=== PATIENT | male | born 1965 | race Caucasian/White ===

== ENCOUNTER 2017-03-30 18:18 | Inpatient (IN) | payer MEDICAID, MEDICARE, OTHER ==
--- NOTE | 2017-03-30 18:38 | EDM.PDOC ---
ED HPI GENERAL MEDICAL PROBLEM - General Chief Complaint: Cardiovascular Problem Stated Complaint: BREATHING PROBLEMS,ABD PAINS, [id number] Time Seen by Provider: 03/30/17 18:35 Source of Information: Reports: Patient, RN, RN Notes Reviewed History Limitations: Reports: No Limitations - History of Present Illness INITIAL COMMENTS - FREE TEXT/NARRATIVE: Patient presents to ER with complaint of stomach pain, shortness of breath and chest pain. He states he has not seen a doctor in 20 year and is on no medications. Patient denies nausea, vomiting, diarrhea, fever and chills. States he has not drank for 2 weeks. Onset: Today Location: Reports: Chest Quality: Reports: Ache Severity: Moderate Improves with: Reports: None Worsens with: Reports: None Associated Symptoms: Reports: No Other Symptoms Epigastric Pain Score (Numeric/FACES): 8 - Related Data Allergies Allergy/AdvReac Type Severity Reaction Status Date / Time No Known Allergies Allergy Verified 03/30/17 18:23 Home Meds: Home Meds . [No Known Home Meds] 03/30/17 [History] Social & Family History - Family History Family Medical History: Noncontributory ED ROS GENERAL - Review of Systems Review Of Systems: ROS reveals no pertinent complaints other than HPI. ED EXAM, GENERAL - Physical Exam Exam: See Below Exam Limited By: No Limitations General Appearance: Alert, WD/WN, No Apparent Distress Eye Exam: Bilateral Eye: Normal Inspection Ears: Normal External Exam, Normal Canal, Hearing Grossly Normal, Normal TMs Nose: Normal Inspection, Normal Mucosa, No Blood Throat/Mouth: Normal Inspection, Normal Lips, Normal Teeth, Normal Gums, Normal Oropharynx, Normal Voice, No Airway Compromise Head: Atraumatic, Normocephalic Neck: Normal Inspection, Supple, Non-Tender, Full Range of Motion Respiratory/Chest: Other (lung sounds diminished.) Cardiovascular: Other (heart rate rapid irregular) GI/Abdominal: Other (tender epigastric) (Male) Exam: Deferred Rectal (Males) Exam: Deferred Back Exam: Normal Inspection, Full Range of Motion, NT Extremities: Normal Inspection, Normal Range of Motion, Non-Tender, Normal Capillary Refill, No Pedal Edema Neurological: Alert, Oriented, CN II-XII Intact, Normal Cognition, Normal Gait, Normal Reflexes, No Motor/Sensory Deficits Psychiatric: Normal Affect, Normal Mood Skin Exam: Warm, Dry, Intact, Normal Color, No Rash Lymphatic: No Adenopathy EKG INTERPRETATION EKG Date: 03/30/17 Time: 18:26 Rhythm: A-Fib Rate (Beats/Min): 162 EKG Interpretation Comments: Atrial fibrillation, V-rate 111-205. Left anterior fascicular block. Probable left ventricular hypertrophy. Anterior ST elevation, probably due to LVH. Borderline prolonged QT interval. Course - Vital Signs Last Recorded V/S: Last Vital Signs Temp 98.9 F 03/30/17 19:32 Pulse 114 H 03/30/17 19:32 Resp 30 H 03/30/17 19:32 BP 200/151 H 03/30/17 19:32 Pulse Ox 100 03/30/17 19:32 - Orders/Labs/Meds Orders: Active Orders 24 hr Category Date Time Status EKG Documentation Completion [RC] STAT Care 03/30/17 19:04 Active Peripheral IV Care [RC] . DIRECTED Care 03/30/17 19:07 Active Chest 1V Frontal [CR] Stat Exams 03/30/17 19:06 Ordered UA W/MICROSCOPIC [URIN] Stat Lab 03/30/17 19:04 Ordered Sodium Chloride 0.9% [Saline Flush] Med 03/30/17 19:04 Active 10 ml FLUSH ASDIRECTED PRN Peripheral IV Insertion Adult [OM.PC] Stat Oth 03/30/17 19:04 Ordered Medication Orders Sodium Chloride (Saline Flush) 10 ml FLUSH ASDIRECTED PRN PRN Reason: Keep Vein Open Labs: Laboratory Tests 03/30/17 03/30/17 03/30/17 Range/Units 18:37 18:37 19:34 WBC 8.2 (5.0-10.0) 10^3/uL RBC 4.95 (4.6-6.2) 10^6/uL Hgb 14.6 (14.0-18.0) g/dL Hct 44.0 (40.0-54.0) % MCV 88.9 (80-100) fL MCH 29.5 (27.0-34.0) pg MCHC 33.2 (33.0-35.0) g/dL Plt Count 254 (150-450) 10^3/uL Neut % (Auto) 60.3 (42.2-75.2) % Lymph % (Auto) 26.1 (20.5-50.1) % [place] % (Auto) 11.7 H (2-8) % Eos % (Auto) 1.7 (1.0-3.0) % Baso % (Auto) 0.2 (0.0-1.0) % Sodium 136 (135-145) mmol/L Potassium 3.8 (3.6-5.0) mmol/L Chloride 100 L (101-111) mmol/L Carbon Dioxide 24.0 (21.0-31.0) mmol/L Anion Gap 15.8 BUN 15 (7-18) mg/dL Creatinine 0.9 (0.6-1.3) mg/dL Est Cr Clr Drug Dosing 108.51 mL/min Estimated GFR (MDRD) > 60 BUN/Creatinine Ratio 16.66 Glucose 127 H (74-105) mg/dL Calcium 9.5 (8.4-10.2) mg/dl Magnesium 1.9 (1.8-2.5) mg/dL Total Bilirubin 1.4 H (0.2-1.0) mg/dL AST 37 (10-42) IU/L ALT 43 (10-60) IU/L Alkaline Phosphatase 37 L (42-121) IU/L Troponin I 0.08 H* (0.00-0.02) ng/ml Total Protein 7.8 (6.7-8.2) g/dl Albumin 4.5 (3.2-5.5) g/dl Globulin 3.3 Albumin/Globulin Ratio 1.36 Urine Opiates Screen Negative (NEGATIVE) Ur Oxycodone Screen Negative (NEGATIVE) Urine Methadone Screen Negative (NEGATIVE) Ur Barbiturates Screen Negative (NEGATIVE) U Tricyclic Antidepress Negative (NEGATIVE) Ur Phencyclidine Scrn Negative (NEGATIVE) Ur Amphetamine Screen Negative (NEGATIVE) U Methamphetamines Scrn Negative (NEGATIVE) Urine MDMA Screen Negative (NEGATIVE) U Benzodiazepines Scrn Negative (NEGATIVE) Urine Cocaine Screen Negative (NEGATIVE) U Marijuana (THC) Screen Negative (NEGATIVE) Ethyl Alcohol < 5 mg/dL Meds: Medications Generic Name Dose Route Start Last Admin Trade Name Freq PRN Reason Stop Dose Admin Sodium Chloride 10 ml 03/30/17 19:04 Saline Flush FLUSH ASDIRECTED PRN Keep Vein Open Discontinued Medications Generic Name Dose Route Start Last Admin Trade Name Freq PRN Reason Stop Dose Admin Aspirin 324 mg 03/30/17 19:41 Aspirin PO 03/30/17 19:42 ONETIME ONE Diltiazem HCl 25 mg 03/30/17 18:41 03/30/17 18:46 Diltiazem IVPUSH 03/30/17 18:42 25 mg ONETIME ONE Administration Metoprolol Tartrate 50 mg 03/30/17 19:51 Lopressor PO 03/30/17 19:52 ONETIME ONE - Radiology Interpretation Free Text/Narrative:: Chest xray: cardiomegaly with suspect left atrial dilation. Moderate vascular congestion See rad report Departure - Departure Time of Disposition: 19:54 Disposition: Admitted As Inpatient 65 Condition: Fair Clinical Impression: Atrial fibrillation with RVR, SOB (shortness of breath) Chest pain Qualifiers: Chest pain type: unspecified Qualified Code(s): R07.9 - Chest pain, unspecified Forms: ED Department Discharge - My Orders Last 24 Hours: My Active Orders 03/30/17 19:04 EKG Documentation Completion [RC] STAT UA W/MICROSCOPIC [URIN] Stat Sodium Chloride 0.9% [Saline Flush] 10 ml FLUSH ASDIRECTED PRN Peripheral IV Insertion Adult [OM.PC] Stat 03/30/17 19:06 Chest 1V Frontal [CR] Stat 03/30/17 19:07 Peripheral IV Care [RC] . DIRECTED - Assessment/Plan Last 24 Hours: My Active Orders 03/30/17 19:04 EKG Documentation Completion [RC] STAT UA W/MICROSCOPIC [URIN] Stat Sodium Chloride 0.9% [Saline Flush] 10 ml FLUSH ASDIRECTED PRN Peripheral IV Insertion Adult [OM.PC] Stat 03/30/17 19:06 Chest 1V Frontal [CR] Stat 03/30/17 19:07 Peripheral IV Care [RC] . DIRECTED
[2017-03-30] MEDS ORDERED: Diltiazem 25 MG/5 ML SDV IVPUSH ONE (18:41)
[2017-03-30] MEDS ORDERED: Sodium Chloride 0.9% 10 ML Syringe FLUSH PRN ×2 (19:04→21:49)
[2017-03-30 19:24] LABS: ANION GAP 15.8; CHLORIDE,CL 100 mmol/L (101-111); SODIUM,NA 136 mmol/L (135-145)
[2017-03-30] MEDS ORDERED: Aspirin 81 MG Tab.Chew PO ONE (19:41)
[2017-03-30] MEDS ORDERED: Metoprolol Tartrate 50 MG Tab PO ONE ×2 (19:51→23:36)
[2017-03-30] MEDS ORDERED: Metoprolol Tartrate 5 MG/5 ML SDV IVPUSH ONE (20:11)
[2017-03-30] MEDS ORDERED: Zolpidem 5 MG Tab PO PRN (21:49)
[2017-03-30] MEDS ORDERED: Acetaminophen 325 MG Tab PO PRN (21:49)
--- NOTE | 2017-03-30 22:01 | PCM.HP ---
H&P History of Present Illness - General Date of Service: 03/30/17 Admit Problem/Dx: Admission Diagnosis/Problem Admission Diagnosis/Problem CHF, Congestive heart failure Source of Information: Patient - History of Present Illness Initial Comments - Free Text/Narative: The patient is a 51-year-old gentleman who has not been receiving medical care for at least a 30 years. He doesn't know about any chronic medical problems he never had surgery, he is not taking medications, no allergy. 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 He noticed that he has been having epigastric pain for about 3 days prior to admission. He also noticed that he is short of breath with activity. He did not notice it appears that he does have a lot of lower extremity edema. Denies chest pain, no black or bloody stool, no nausea or vomiting. Epigastric Pain Score (Numeric/FACES): 8 - Related Data Allergies/Adverse Reactions: Allergies Allergy/AdvReac Type Severity Reaction Status Date / Time No Known Allergies Allergy Verified 03/30/17 18:23 Home Medications: Home Meds . [No Known Home Meds] 03/30/17 [History] Past Medical History - Infectious Disease History Infectious Disease History: Reports: Chicken Pox, Measles, Mumps Social & Family History - Family History Family Medical History: Noncontributory - Tobacco Use Smoking Status *Q: Never Smoker - Caffeine Use Caffeine Use: Reports: None - Alcohol Use Days Per Week of Alcohol Use: 1 Number of Drinks Per Day: 0 Total Drinks Per Week: 0 - Recreational Drug Use Recreational Drug Use: No H&P Review of Systems - Review of Systems: Review Of Systems: See Below General: Denies: Fever, Chills Pulmonary: Reports: Shortness of Breath. Denies: Wheezing, Cough, Sputum, Hemoptysis Cardiovascular: Denies: Chest Pain Gastrointestinal: Reports: Abdominal Pain (Epigastric). Denies: Black Stool, Constipation, Diarrhea Genitourinary: Denies: Dysuria Psychiatric: Denies: Confusion Exam - Exam Exam: See Below - Vital Signs Vital Signs: Last Vital Signs Temp 37.2 C 03/30/17 19:32 Pulse 134 H 03/30/17 20:16 Resp 30 H 03/30/17 19:32 BP 205/149 H 03/30/17 20:16 Pulse Ox 100 03/30/17 19:32 Weight: 97.069 kg - Exam General: Alert, Oriented Neck: Supple Lungs: Normal Respiratory Effort, Rhonchi (Basilar) Cardiovascular: Irregular Rhythm GI/Abdominal Exam: Normal Bowel Sounds, Soft, Non-Tender Extremities: Pedal Edema (Bilateral 1+) Skin: Warm, Dry Neuro Extensive - Mental Status: Alert, Oriented x3, Normal Mood/Affect - Patient Data Result Diagrams: 03/30/17 18:37 03/30/17 18:37 EKG INTERPRETATION Rhythm: A-Fib *Q Meaningful Use (ADM) - VTE *Q VTE Criteria *Q: - Stroke *Q Stroke Criteria *Q: - AMI *Q AMI Criteria *Q: - Problem List (1) Acute CHF SNOMED Code(s): 55070487 ICD Code: I50.9 - HEART FAILURE, UNSPECIFIED Status: Acute Current Visit : Yes (2) Atrial fibrillation with RVR SNOMED Code(s): 871024257690239 ICD Code: I48.91 - UNSPECIFIED ATRIAL FIBRILLATION Status: Acute Current Visit: Yes (3) Chest pain SNOMED Code(s): 40623683 ICD Code: R07.9 - CHEST PAIN, UNSPECIFIED Status: Acute Current Visit: Yes Qualifiers: Chest pain type: unspecified Qualified Code(s): R07.9 - Chest pain, unspecified (4) SOB (shortness of breath) SNOMED Code(s): 581644605 ICD Code: R06.02 - SHORTNESS OF BREATH Status: Acute Current Visit: Yes Problem List Initiated/Reviewed/Updated: Yes Orders Last 24hrs: Active Orders 24 hr Category Date Time Status TSH ULTRASENSITIVE [CHEM] AM Lab 03/31/17 05:11 Ordered Medication Orders Acetaminophen (Tylenol) 650 mg PO Q4H PRN PRN Reason: Pain (Mild 1-3)/fever Aspirin (Aspirin) 325 mg PO WITHBREAKFAST DEBRA Furosemide (Lasix) 20 mg PO BIDDIURETIC DEBRA Heparin Sodium (Porcine) (Heparin Sodium) 5,000 units SUBCUT Q8HR DEBRA Metoprolol Tartrate (Lopressor) 50 mg PO BID DEBRA Potassium Chloride (Klor-Con 10) 20 meq PO WITHBREAKFAST DEBRA Sodium Chloride (Saline Flush) 10 ml FLUSH ASDIRECTED PRN PRN Reason: Keep Vein Open Sodium Chloride (Saline Flush) 10 ml FLUSH ASDIRECTED PRN PRN Reason: Keep Vein Open Zolpidem Tartrate (Ambien) 5 mg PO BEDTIME PRN PRN Reason: Sleep Assessment/Plan Comment:: The patient is a 51-year-old gentleman with no past medical history, no medications. Presented with shortness of breath, epigastric pain. Noted to have rapid atrial fibrillation in the emergency room #1 rapid atrial fibrillation The patient received IV Cardizem but the heart rate rate still remained elevated. Give IV metoprolol and oral metoprolol. With that the patient's heart rate came down below 100. I will continue the patient on oral metoprolol. Monitor on telemetry Start on aspirin At this point I will not start on anticoagulation yet will need further workup. #2 acute congestive heart failure Based on lower extremity edema, abnormal chest x-ray Will need echocardiogram for further characterization Start the patient on Lasix and potassium supplement #3 hyperglycemia noted We will recheck #4 hypertension noted Start Lasix and metoprolol Monitor and adjust as needed #5 epigastric pain This might be ischemia or A. fib related Possible gastric ulcer Start on Protonix #6 mildly elevated troponin Concerning with epigastric pain, tachycardia Repeat troponin Start aspirin, metoprolol For now hold anticoagulation #7 DVT prophylaxis will be with subcutaneous heparin
--- NOTE | 2017-03-30 22:07 | PCM.HP ---
H&P History of Present Illness - General Date of Service: 03/30/17 Admit Problem/Dx: Admission Diagnosis/Problem Admission Diagnosis/Problem CHF, Congestive heart failure - History of Present Illness Initial Comments - Free Text/Narative: The patient is a 51-year-old gentleman with no past medical history, no medications. Presented with shortness of breath, epigastric pain. Noted to have rapid atrial fibrillation in the emergency room Epigastric Pain Score (Numeric/FACES): 8 - Related Data Allergies/Adverse Reactions: Allergies Allergy/AdvReac Type Severity Reaction Status Date / Time No Known Allergies Allergy Verified 03/30/17 18:23 Home Medications: Home Meds . [No Known Home Meds] 03/30/17 [History] Past Medical History - Infectious Disease History Infectious Disease History: Reports: Chicken Pox, Measles, Mumps Social & Family History - Family History Family Medical History: Noncontributory - Tobacco Use Smoking Status *Q: Never Smoker - Caffeine Use Caffeine Use: Reports: None - Alcohol Use Days Per Week of Alcohol Use: 1 Number of Drinks Per Day: 0 Total Drinks Per Week: 0 - Recreational Drug Use Recreational Drug Use: No H&P Review of Systems - Review of Systems: Review Of Systems: See Below General: Denies: Fever Pulmonary: Reports: Shortness of Breath Cardiovascular: Reports: Edema. Denies: Chest Pain Psychiatric: Denies: Confusion Exam - Vital Signs Vital Signs: Last Vital Signs Temp 37.2 C 03/30/17 19:32 Pulse 134 H 03/30/17 20:16 Resp 30 H 03/30/17 19:32 BP 205/149 H 03/30/17 20:16 Pulse Ox 100 03/30/17 19:32 Weight: 97.069 kg - Patient Data Result Diagrams: 03/30/17 18:37 03/30/17 18:37 *Q Meaningful Use (ADM) - VTE *Q VTE Criteria *Q: - Stroke *Q Stroke Criteria *Q: - AMI *Q AMI Criteria *Q: - Problem List (1) Acute CHF SNOMED Code(s): 59152442 ICD Code: I50.9 - HEART FAILURE, UNSPECIFIED Status: Acute Current Visit : Yes (2) Atrial fibrillation with RVR SNOMED Code(s): 680580900239331 ICD Code: I48.91 - UNSPECIFIED ATRIAL FIBRILLATION Status: Acute Current Visit: Yes (3) Chest pain SNOMED Code(s): 31925371 ICD Code: R07.9 - CHEST PAIN, UNSPECIFIED Status: Acute Current Visit: Yes Qualifiers: Chest pain type: unspecified Qualified Code(s): R07.9 - Chest pain, unspecified (4) SOB (shortness of breath) SNOMED Code(s): 295571413 ICD Code: R06.02 - SHORTNESS OF BREATH Status: Acute Current Visit: Yes Problem List Initiated/Reviewed/Updated: Yes Orders Last 24hrs: Active Orders 24 hr Category Date Time Status TSH ULTRASENSITIVE [CHEM] AM Lab 03/31/17 05:11 Ordered Pantoprazole [ProTONIX] Med 03/31/17 06:00 Ordered 40 mg PO BIDAC Medication Orders Acetaminophen (Tylenol) 650 mg PO Q4H PRN PRN Reason: Pain (Mild 1-3)/fever Aspirin (Aspirin) 325 mg PO WITHBREAKFAST DEBRA Furosemide (Lasix) 20 mg PO BIDDIURETIC DEBRA Heparin Sodium (Porcine) (Heparin Sodium) 5,000 units SUBCUT Q8HR DEBRA Metoprolol Tartrate (Lopressor) 50 mg PO BID DEBRA Pantoprazole Sodium (Protonix) 40 mg PO BIDAC DEBRA Potassium Chloride (Klor-Con 10) 20 meq PO WITHBREAKFAST DEBRA Sodium Chloride (Saline Flush) 10 ml FLUSH ASDIRECTED PRN PRN Reason: Keep Vein Open Sodium Chloride (Saline Flush) 10 ml FLUSH ASDIRECTED PRN PRN Reason: Keep Vein Open Zolpidem Tartrate (Ambien) 5 mg PO BEDTIME PRN PRN Reason: Sleep Assessment/Plan Comment:: The patient is a 51-year-old gentleman with no past medical history, no medications. Presented with shortness of breath, epigastric pain. Noted to have rapid atrial fibrillation in the emergency room #1 rapid atrial fibrillation The patient received IV Cardizem but the heart rate rate still remained elevated. Give IV metoprolol and oral metoprolol. With that the patient's heart rate came down below 100. I will continue the patient on oral metoprolol. Monitor on telemetry Start on aspirin At this point I will not start on anticoagulation yet will need further workup. #2 acute congestive heart failure Based on lower extremity edema, abnormal chest x-ray Will need echocardiogram for further characterization Start the patient on Lasix and potassium supplement #3 hyperglycemia noted We will recheck #4 hypertension noted Start Lasix and metoprolol Monitor and adjust as needed #5 epigastric pain This might be ischemia or A. fib related Possible gastric ulcer Start on Protonix #6 mildly elevated troponin Concerning with epigastric pain, tachycardia Repeat troponin Start aspirin, metoprolol For now hold anticoagulation #7 DVT prophylaxis will be with subcutaneous heparin
[2017-03-30] MEDS: Furosemide 20 MG Tab PO SCH (22:39)
[2017-03-30] MEDS: Heparin Sodium 5,000 Units/ML Vial SUBCUT SCH (22:39)
[2017-03-31] MEDS ORDERED: amLODIPine 5 MG Tab PO ONE (03:51)
[2017-03-31] MEDS: Heparin Sodium 5,000 Units/ML Vial SUBCUT SCH ×3 (06:18→21:54)
[2017-03-31] MEDS: Pantoprazole 40 MG Tab.CR PO SCH ×2 (06:18→17:35)
[2017-03-31 07:05] LABS: ANION GAP 13.9; CHLORIDE,CL 106 mmol/L (101-111); SODIUM,NA 138 mmol/L (135-145)
[2017-03-31] MEDS: Potassium Chloride 10 MEQ Tab.ER PO SCH (08:57)
[2017-03-31] MEDS: Furosemide 20 MG Tab PO SCH ×2 (08:57→13:36)
[2017-03-31] MEDS: Aspirin 325 MG Tab PO SCH (08:57)
[2017-03-31] MEDS: Metoprolol Tartrate 50 MG Tab PO SCH ×2 (08:57→21:54)
[2017-03-31] MEDS ORDERED: Aluminum Hydroxide/Magnesium Hydroxide/Simethicone Susp 30 ML Cup PO PRN (12:08)
[2017-03-31] MEDS ORDERED: Aluminum Hydroxide/Magnesium Hydroxide/Simethicone Susp 30 ML Cup PO ONE (12:15)
--- NOTE | 2017-03-31 12:15 | PCM.PN ---
- General Info Date of Service: 03/31/17 Admission Dx/Problem (Free Text): Shortness of breath, epigastric pain Subjective Update: He feels that overnight the shortness of breath has improved. Continues to have lower extremity edema. Epigastric pain has improved but still present. No associated nausea. The pain started days prior to admission. - Review of Systems General: Denies: Fever Pulmonary: Reports: Shortness of Breath Cardiovascular: Denies: Chest Pain Gastrointestinal: Reports: Abdominal Pain (Epigastric) Neurological: Denies: Confusion - Patient Data Vitals - Most Recent: Last Vital Signs Temp 37.1 C 03/31/17 08:00 Pulse 96 03/31/17 08:57 Resp 20 03/31/17 08:00 BP 157/138 H 03/31/17 08:57 Pulse Ox 98 03/31/17 08:00 Weight - Most Recent: 97.069 kg I&O - Last 24 Hours: Intake & Output 03/30/17 03/31/17 03/31/17 22:59 06:59 14:59 Intake Total 240 Balance 240 Lab Results Last 24 Hours: Laboratory Results - last 24 hr 03/31/17 03/31/17 03/31/17 Range/Units 06:24 06:24 06:24 WBC 6.8 (5.0-10.0) 10^3/uL RBC 4.75 (4.6-6.2) 10^6/uL Hgb 14.1 (14.0-18.0) g/dL Hct 42.1 (40.0-54.0) % MCV 88.6 (80-100) fL MCH 29.7 (27.0-34.0) pg MCHC 33.5 (33.0-35.0) g/dL Plt Count 232 (150-450) 10^3/uL Neut % (Auto) 53.4 (42.2-75.2) % Lymph % (Auto) 30.4 (20.5-50.1) % [place] % (Auto) 14.0 H (2-8) % Eos % (Auto) 2.1 (1.0-3.0) % Baso % (Auto) 0.1 (0.0-1.0) % Sodium 138 (135-145) mmol/L Potassium 3.9 (3.6-5.0) mmol/L Chloride 106 (101-111) mmol/L Carbon Dioxide 22.0 (21.0-31.0) mmol/L Anion Gap 13.9 BUN 17 (7-18) mg/dL Creatinine 0.9 (0.6-1.3) mg/dL Est Cr Clr Drug Dosing 108.51 mL/min Estimated GFR (MDRD) > 60 Glucose 121 H (74-105) mg/dL Calcium 9.1 (8.4-10.2) mg/dl Troponin I 0.08 H* (0.00-0.02) ng/ml TSH, Ultra Sensitive 2.97 (0.45-5.33) uIu/mL Med Orders - Current: Current Medications Acetaminophen (Tylenol) 650 mg PO Q4H PRN PRN Reason: Pain (Mild 1-3)/fever Al Hydroxide/Mg Hydroxide (Mag-Al Plus) 30 ml PO ONETIME ONE Stop: 03/31/17 12:16 Al Hydroxide/Mg Hydroxide (Mag-Al Plus) 30 ml PO Q6H PRN PRN Reason: epigastric pain, nausea Aspirin (Aspirin) 325 mg PO WITHBREAKFAST [facility] Last Admin: 03/31/17 08:57 Dose: 325 mg Furosemide (Lasix) 20 mg PO BIDDIURETIC [facility] Last Admin: 03/31/17 08:57 Dose: 20 mg Heparin Sodium (Porcine) (Heparin Sodium) 5,000 units SUBCUT Q8HR [facility] Last Admin: 03/31/17 06:18 Dose: 5,000 units Lisinopril (Prinivil) 10 mg PO DAILY [facility] Metoprolol Tartrate (Lopressor) 50 mg PO BID [facility] Last Admin: 03/31/17 08:57 Dose: 50 mg Pantoprazole Sodium (Protonix) 40 mg PO BIDAC [facility] Last Admin: 03/31/17 06:18 Dose: 40 mg Potassium Chloride (Klor-Con 10) 20 meq PO WITHBREAKFAST [facility] Last Admin: 03/31/17 08:57 Dose: 20 meq Sodium Chloride (Saline Flush) 10 ml FLUSH ASDIRECTED PRN PRN Reason: Keep Vein Open Sodium Chloride (Saline Flush) 10 ml FLUSH ASDIRECTED PRN PRN Reason: Keep Vein Open Zolpidem Tartrate (Ambien) 5 mg PO BEDTIME PRN PRN Reason: Sleep Discontinued Medications Amlodipine Besylate (Norvasc) 5 mg PO ONETIME ONE Stop: 03/31/17 03:52 Last Admin: 03/31/17 04:02 Dose: 5 mg Aspirin (Aspirin) 324 mg PO ONETIME ONE Stop: 03/30/17 19:42 Last Admin: 03/30/17 19:53 Dose: 324 mg Diltiazem HCl (Diltiazem) 25 mg IVPUSH ONETIME ONE Stop: 03/30/17 18:42 Last Admin: 03/30/17 18:46 Dose: 25 mg Metoprolol Tartrate (Lopressor) 50 mg PO ONETIME ONE Stop: 03/30/17 19:52 Last Admin: 03/30/17 19:55 Dose: 50 mg Metoprolol Tartrate (Lopressor) 5 mg IVPUSH ONETIME ONE Stop: 03/30/17 20:12 Last Admin: 03/30/17 20:16 Dose: 5 mg Metoprolol Tartrate (Lopressor) 50 mg PO ONETIME ONE Stop: 03/30/17 23:37 Last Admin: 03/30/17 23:51 Dose: 50 mg - Exam General: Alert, Oriented Neck: Supple Lungs: Normal Respiratory Effort, [place] Cardiovascular: Irregular Rhythm GI/Abdominal Exam: Normal Bowel Sounds, Soft, Other (Mild to moderate epigastric tenderness) Extremities: Pedal Edema - Problem List & Annotations (1) Acute CHF SNOMED Code(s): 99112164 Code(s): I50.9 - HEART FAILURE, UNSPECIFIED Status: Acute Current Visit: Yes (2) Atrial fibrillation with RVR SNOMED Code(s): 631211211678711 Code(s): I48.91 - UNSPECIFIED ATRIAL FIBRILLATION Status: Acute Current Visit: Yes (3) Chest pain SNOMED Code(s): 16794880 Code(s): R07.9 - CHEST PAIN, UNSPECIFIED Status: Acute Current Visit: Yes Qualifiers: Chest pain type: unspecified Qualified Code(s): R07.9 - Chest pain, unspecified (4) SOB (shortness of breath) SNOMED Code(s): 035788124 Code(s): R06.02 - SHORTNESS OF BREATH Status: Acute Current Visit: Yes - Problem List Review Problem List Initiated/Reviewed/Updated: Yes - My Orders Last 24 Hours: My Active Orders 03/31/17 06:00 Pantoprazole [ProTONIX] 40 mg PO BIDAC 03/31/17 12:08 Alum Hydrox/Mag Hydrox/Simeth [Mag-Al Plus] 30 ml PO ONETIME ONE Alum Hydrox/Mag Hydrox/Simeth [Mag-Al Plus] 30 ml PO Q6H PRN 03/31/17 12:10 GLYCOSYLATED HEMOGLOBIN (HA1C) [REF] Routine 03/31/17 12:15 Lisinopril [Prinivil] 10 mg PO DAILY 04/01/17 05:15 BASIC METABOLIC PANEL,BMP [CHEM] AM CBC WITH AUTO DIFF [HEME] AM - Plan Plan:: The patient is a 51-year-old gentleman with no past medical history, no medications. Presented with shortness of breath, epigastric pain. Noted to have rapid atrial fibrillation in the emergency room #1 rapid atrial fibrillation The patient received IV Cardizem now controlled with PO metoprolol. Monitor on telemetry Started on aspirin At this point I will not start on anticoagulation yet - will need further workup. C+H+A-D+/-S- #2 acute congestive heart failure Based on lower extremity edema, abnormal chest x-ray Will need echocardiogram for further characterization treat the patient on Lasix and potassium supplement #3 hyperglycemia noted We will check hgbA1c #4 hypertension noted Started Lasix and metoprolol add lisinopril Monitor and adjust as needed #5 epigastric pain This might be ischemia or A. fib related Possible gastric ulcer cont on Protonix add maalox #6 mildly elevated troponin Concerning with epigastric pain, tachycardia Repeat troponin is stable Started aspirin, metoprolol For now hold full dose anticoagulation #7 DVT prophylaxis will be with subcutaneous heparin
[2017-03-31] MEDS: Lisinopril 10 MG Tab PO SCH (12:23)
[2017-04-01] MEDS: Pantoprazole 40 MG Tab.CR PO SCH (06:20)
[2017-04-01] MEDS: Heparin Sodium 5,000 Units/ML Vial SUBCUT SCH (06:20)
[2017-04-01 06:50] LABS: ANION GAP 13.6; CHLORIDE,CL 103 mmol/L (101-111); SODIUM,NA 138 mmol/L (135-145)
[2017-04-01] MEDS: Lisinopril 10 MG Tab PO SCH (08:22)
[2017-04-01] MEDS: Furosemide 20 MG Tab PO SCH (08:22)
[2017-04-01] MEDS: Potassium Chloride 10 MEQ Tab.ER PO SCH (08:22)
[2017-04-01] MEDS: Aspirin 325 MG Tab PO SCH (08:22)
[2017-04-01] MEDS ORDERED: Metoprolol Tartrate 50 MG Tab PO SCH (09:00)
--- NOTE | 2017-04-01 10:39 | PCM.DCSUM1 ---
Discharge Summary - Hospital Course Free Text/Narrative:: The patient is a 51-year-old gentleman with no past medical history, no medications. Presented with shortness of breath, epigastric pain. Noted to have rapid atrial fibrillation in the emergency room #1 rapid atrial fibrillation The patient received IV Cardizem now controlled with PO metoprolol. Started on aspirin C+(although it may relate to rapid afib)H+A-D+/-S- At this point I will not start on anticoagulation yet - will need further workup , would obtain echo, stress test #2 acute congestive heart failure Based on lower extremity edema, abnormal chest x-ray might relate to rapid afib Will need echocardiogram for further characterization treat the patient on Lasix and potassium supplement consider stopping diuretics if echo good, afib controlled #3 hyperglycemia noted in the 120s on admission and day 1 but fasting BS 88 on Day 2 We will check hgbA1c #4 hypertension noted Started Lasix and metoprolol, lisinopril Monitor and adjust as needed #5 epigastric pain This might be ischemia or A. fib related Possible gastric ulcer cont on Protonix #6 mildly elevated troponin Concerning with epigastric pain, tachycardia Repeat troponin is stable Started aspirin, metoprolol For now hold full dose anticoagulation follw up as out pt with further evals - Discharge Data Discharge Date: 04/01/17 Discharge Disposition: Home, Self-Care 01 Condition: Fair - Discharge Diagnosis/Problem(s) (1) Acute CHF SNOMED Code(s): 51542051 ICD Code: I50.9 - HEART FAILURE, UNSPECIFIED Status: Acute Current Visit : Yes (2) Atrial fibrillation with RVR SNOMED Code(s): 185097569753036 ICD Code: I48.91 - UNSPECIFIED ATRIAL FIBRILLATION Status: Acute Current Visit: Yes (3) Chest pain SNOMED Code(s): 07307187 ICD Code: R07.9 - CHEST PAIN, UNSPECIFIED Status: Acute Current Visit: Yes Qualifiers: Chest pain type: unspecified Qualified Code(s): R07.9 - Chest pain, unspecified (4) SOB (shortness of breath) SNOMED Code(s): 000914722 ICD Code: R06.02 - SHORTNESS OF BREATH Status: Acute Current Visit: Yes - Patient Instructions Diet: Heart Healthy Diet Activity: As Tolerated - Discharge Plan Prescriptions/Med Rec: Furosemide [Lasix] 20 mg PO DAILY #30 tablet Lisinopril [Prinivil] 20 mg PO DAILY #30 tablet Metoprolol Tartrate [Lopressor] 75 mg PO BID #60 tablet Pantoprazole [ProTONIX] 40 mg PO DAILY #30 tab.cr Potassium Chloride [Klor-Con 10] 20 meq PO WITHBREAKFAST #30 tab.er Home Medications: Home Meds Aspirin 325 mg PO WITHBREAKFAST tablet 04/01/17 [Rx] Furosemide [Lasix] 20 mg PO DAILY #30 tablet 04/01/17 [Rx] Lisinopril [Prinivil] 20 mg PO DAILY #30 tablet 04/01/17 [Rx] Metoprolol Tartrate [Lopressor] 75 mg PO BID #60 tablet 04/01/17 [Rx] Pantoprazole [ProTONIX] 40 mg PO DAILY #30 tab.cr 04/01/17 [Rx] Potassium Chloride [Klor-Con 10] 20 meq PO WITHBREAKFAST #30 tab.er 04/01/17 [Rx ] Patient Handouts: Furosemide tablets, Potassium Salts tablets, extended- release tablets or capsules, Metoprolol tablets, Aspirin and Your Heart, Lisinopril tablets, Pantoprazole tablets, Heart Failure, Wbby-in-Vijh, Aspirin, ASA oral tablets, Atrial Fibrillation, [id number] Referrals: PCP,None [Primary Care Provider] - (dr. Bosch) - Discharge Summary/Plan Comment DC Time >30 min.: No - General Info Date of Service: 04/01/17 - Review of Systems General: Denies: Fever, Weakness Pulmonary: Denies: Shortness of Breath Cardiovascular: Denies: Chest Pain Gastrointestinal: Denies: Abdominal Pain Psychiatric: Denies: Confusion - Patient Data Vitals - Most Recent: Last Vital Signs Temp 37.0 C 04/01/17 07:47 Pulse 80 04/01/17 08:22 Resp 20 04/01/17 07:47 BP 151/96 H 04/01/17 08:22 Pulse Ox 98 04/01/17 07:47 Weight - Most Recent: 97.069 kg I&O - Last 24 hours: Intake & Output 03/31/17 04/01/17 04/01/17 22:59 06:59 14:59 Intake Total 250 440 Balance 250 440 Lab Results - Last 24 hrs: Laboratory Results - last 24 hr 04/01/17 04/01/17 Range/Units 06:10 06:10 WBC 5.4 (5.0-10.0) 10^3/uL RBC 4.45 L (4.6-6.2) 10^6/uL Hgb 13.2 L (14.0-18.0) g/dL Hct 39.5 L (40.0-54.0) % MCV 88.8 (80-100) fL MCH 29.7 (27.0-34.0) pg MCHC 33.4 (33.0-35.0) g/dL Plt Count 194 (150-450) 10^3/uL Neut % (Auto) 43.3 (42.2-75.2) % Lymph % (Auto) 36.0 (20.5-50.1) % [place] % (Auto) 17.0 H (2-8) % Eos % (Auto) 3.3 H (1.0-3.0) % Baso % (Auto) 0.4 (0.0-1.0) % Sodium 138 (135-145) mmol/L Potassium 3.6 (3.6-5.0) mmol/L Chloride 103 (101-111) mmol/L Carbon Dioxide 25.0 (21.0-31.0) mmol/L Anion Gap 13.6 BUN 15 (7-18) mg/dL Creatinine 0.9 (0.6-1.3) mg/dL Est Cr Clr Drug Dosing 108.51 mL/min Estimated GFR (MDRD) > 60 Glucose 87 (74-105) mg/dL Calcium 8.7 (8.4-10.2) mg/dl Med Orders - Current: Current Medications Acetaminophen (Tylenol) 650 mg PO Q4H PRN PRN Reason: Pain (Mild 1-3)/fever Al Hydroxide/Mg Hydroxide (Mag-Al Plus) 30 ml PO Q6H PRN PRN Reason: epigastric pain, nausea Aspirin (Aspirin) 325 mg PO WITHBREAKFAST [facility] Last Admin: 04/01/17 08:22 Dose: 325 mg Furosemide (Lasix) 20 mg PO BIDDIURETIC [facility] Last Admin: 04/01/17 08:22 Dose: 20 mg Heparin Sodium (Porcine) (Heparin Sodium) 5,000 units SUBCUT Q8HR [facility] Last Admin: 04/01/17 06:20 Dose: 5,000 units Lisinopril (Prinivil) 10 mg PO DAILY [facility] Last Admin: 04/01/17 08:22 Dose: 10 mg Metoprolol Tartrate (Lopressor) 75 mg PO BID [facility] Last Admin: 04/01/17 08:22 Dose: 75 mg Pantoprazole Sodium (Protonix) 40 mg PO BIDAC [facility] Last Admin: 04/01/17 06:20 Dose: 40 mg Potassium Chloride (Klor-Con 10) 20 meq PO WITHBREAKFAST [facility] Last Admin: 04/01/17 08:22 Dose: 20 meq Sodium Chloride (Saline Flush) 10 ml FLUSH ASDIRECTED PRN PRN Reason: Keep Vein Open Sodium Chloride (Saline Flush) 10 ml FLUSH ASDIRECTED PRN PRN Reason: Keep Vein Open Zolpidem Tartrate (Ambien) 5 mg PO BEDTIME PRN PRN Reason: Sleep Discontinued Medications Al Hydroxide/Mg Hydroxide (Mag-Al Plus) 30 ml PO ONETIME ONE Stop: 03/31/17 12:16 Last Admin: 03/31/17 12:22 Dose: 30 ml Amlodipine Besylate (Norvasc) 5 mg PO ONETIME ONE Stop: 03/31/17 03:52 Last Admin: 03/31/17 04:02 Dose: 5 mg Aspirin (Aspirin) 324 mg PO ONETIME ONE Stop: 03/30/17 19:42 Last Admin: 03/30/17 19:53 Dose: 324 mg Diltiazem HCl (Diltiazem) 25 mg IVPUSH ONETIME ONE Stop: 03/30/17 18:42 Last Admin: 03/30/17 18:46 Dose: 25 mg Metoprolol Tartrate (Lopressor) 50 mg PO ONETIME ONE Stop: 03/30/17 19:52 Last Admin: 03/30/17 19:55 Dose: 50 mg Metoprolol Tartrate (Lopressor) 5 mg IVPUSH ONETIME ONE Stop: 03/30/17 20:12 Last Admin: 03/30/17 20:16 Dose: 5 mg Metoprolol Tartrate (Lopressor) 50 mg PO BID [facility] Last Admin: 03/31/17 21:54 Dose: 50 mg Metoprolol Tartrate (Lopressor) 50 mg PO ONETIME ONE Stop: 03/30/17 23:37 Last Admin: 03/30/17 23:51 Dose: 50 mg - Exam General: Reports: Alert, Oriented Neck: Reports: Supple Lungs: Reports: Clear to Auscultation, Normal Respiratory Effort Cardiovascular: Reports: Irregular Rhythm Extremities: No Pedal Edema *Q Meaningful Use (DIS) - VTE *Q VTE Criteria *Q: - Stroke *Q Stroke Criteria *Q: - AMI *Q AMI Criteria *Q:
--- NOTE | 2017-04-04 15:10 | EKG ---
03/30/2017 - GIL AVELAR - TIME: 1907 hours. FINDINGS: EKG, per my reading, shows atrial fibrillation with rapid ventricular rate around 110. MODL /[id number]
--- NOTE | 2017-04-04 15:25 | EKG ---
03/30/2017 - GIL AVELAR - TIME: 6:26 p.m. EKG per my reading shows rapid atrial fibrillation at the rate of 160s. MODL /[id number]
== END 2017-04-01 11:20 | disposition home or self-care (01) | DRG 293 ==
LOC: DL.ED 18:18 → DL.MS 21:44 → UNDOADMIN 21:44 → DL.MS 21:49
PROVIDERS: ADMIT Internal Medicine; ATTEND Internal Medicine
DX: I50.9 Heart failure, unspecified (principal); I48.91 Unspecified atrial fibrillation; R73.9 Hyperglycemia, unspecified; I10 Essential (primary) hypertension; R10.13 Epigastric pain; R74.8 Abnormal levels of other serum enzymes
CPT/HCPCS: 36415; 71045; 80048; 80053; 80305; 81001; 83036; 83735; 84443; 84484; 85025; 93005; 93010; 96374; 96375; 99285; A9270-GY; G0480; J1644; J3490

== ENCOUNTER 2021-10-07 09:00 | Emergency (ER) | payer SELFPAY ==
[2021-10-07] MEDS: Sodium Chloride 0.9% 10 ML Syringe FLUSH PRN ×2 (09:19→12:21)
[2021-10-07] MEDS ORDERED: Nitroglycerin 0.4 MG Tab.SL SL ONE (09:20)
[2021-10-07] MEDS ORDERED: Aspirin 81 MG Tab.Chew PO ONE (09:20)
[2021-10-07 09:41] LABS: ANION GAP 9.4 mEq/L (7-13); CHLORIDE,CL 100 mmol/L (98-107); ESTIMATED GFR 77 mL/min (>=60); SODIUM,NA 134 mmol/L (136-145)
[2021-10-07] MEDS ORDERED: Nitroglycerin/D5W 25 MG/250 ML BOTTLE IV SCH (09:45)
[2021-10-07] MEDS ORDERED: Metoprolol Tartrate 5 MG/5 ML SDV IVPUSH ONE ×2 (10:31→11:58)
[2021-10-07] MEDS ORDERED: hydrALAZINE 20 MG/ML SDV IVPUSH ONE (12:00)
[2021-10-07] MEDS ORDERED: Labetalol 20 MG/4 ML Syringe IVPUSH ONE ×2 (13:09→14:10)
[2021-10-07] MEDS ORDERED: Heparin Sodium 5,000 Units/ML Vial IVPUSH ONE (14:14)
[2021-10-07] MEDS ORDERED: Heparin Sodium/0.45% NaCl 25,000 UNITS/500 ML BAG IV SCH (14:15)
== END 2021-10-07 17:57 | disposition home or self-care (01) ==
LOC: DL.ED 09:00
DX: I21.4 Non-ST elevation (NSTEMI) myocardial infarction (principal); Z20.822 Contact with and (suspected) exposure to COVID-19; Z79.82 Long term (current) use of aspirin; Z79.899 Other long term (current) drug therapy
CPT/HCPCS: 36415; 71045; 80053; 82947; 83690; 83735; 83880; 84443; 84484; 85025; 85379; 85610; 86140; 87635; 93005; 93010; 96365; 96366; 96368; 96375; 96376; 99284; 99285; A9270; J0360; J1644; J3490; U0002

== ENCOUNTER 2022-02-11 10:39 | Inpatient (IN) | payer MEDICAID ==
[2022-02-11] MEDS ORDERED: Diltiazem 25 MG/5 ML SDV IVPUSH ONE (11:17)
[2022-02-11] MEDS ORDERED: Sodium Chloride 0.9% 10 ML Syringe FLUSH PRN (11:17)
[2022-02-11] MEDS ORDERED: Diltiazem 125 MG in Sodium Chloride 0.9% 100 ML IV SCH (11:30)
[2022-02-11 11:44] LABS: PTT,PARTIAL THROMBOPLSTIN TIME 28.3 SEC (22.0-34.0)
[2022-02-11] MEDS ORDERED: Furosemide 40 MG/4 ML VIAL IVPUSH ONE (11:56)
[2022-02-11 12:01] LABS: ANION GAP 12.3 mEq/L (7-13)
[2022-02-11 12:53] LABS: CORONAVIRUS COVID-19 NAA NEGATIVE (NEGATIVE); RESPIRATORY SYNCYTIAL VIR NAA NEGATIVE (NEGATIVE)
[2022-02-11] MEDS ORDERED: Ondansetron 4 MG/2 ML SDV IVPUSH PRN (15:32)
[2022-02-11] MEDS ORDERED: Albuterol/Ipratropium 3.0-0.5 MG/3 ML Neb Soln NEB PRN (15:32)
[2022-02-11] MEDS ORDERED: Magnesium Hydroxide 400 MG/5 ML Susp 30 ML Cup PO PRN (15:32)
[2022-02-11] MEDS ORDERED: Acetaminophen/HYDROcodone 325-10 MG Tab PO PRN (15:32)
[2022-02-11] MEDS ORDERED: Polyethylene Glycol 3350 Powder 17 GM Packet PO PRN (15:32)
[2022-02-11] MEDS ORDERED: Acetaminophen 325 MG Tab PO PRN (15:32)
[2022-02-11] MEDS ORDERED: HYDROmorphone 0.5 MG/0.5 ML Syringe IVPUSH PRN (15:32)
[2022-02-11] MEDS ORDERED: Metoprolol Tartrate 5 MG/5 ML SDV IVPUSH PRN (15:45)
[2022-02-11] MEDS: Warfarin 5 MG Tab PO SCH (16:53)
[2022-02-11] MEDS: Lisinopril 10 MG Tab PO SCH (16:53)
[2022-02-11] MEDS ORDERED: Magnesium Sulfate/Water 2 GM in Premix Bag 1 BAG IV ONE (17:00)
[2022-02-11 18:11] LABS: AMPHETAMINES,URINE NEGATIVE (NEGATIVE); BARBITURATES,URINE NEGATIVE (NEGATIVE); BENZODIAZEPINE,URINE NEGATIVE (NEGATIVE); MDMA (ECSTASY), URINE NEGATIVE (NEGATIVE); METHADONE,URINE NEGATIVE (NEGATIVE); METHAMPHETAMINES,URINE NEGATIVE (NEGATIVE); OPIATES,URINE NEGATIVE (NEGATIVE); OXYCODONE,URINE NEGATIVE (NEGATIVE); PHENCYCLIDINE,URINE NEGATIVE (NEGATIVE); TCA,URINE NEGATIVE (NEGATIVE)
[2022-02-11] MEDS: Metoprolol Tartrate 50 MG Tab PO SCH (20:27)
[2022-02-11] MEDS: Heparin Sodium/0.45% NaCl 25,000 UNITS/500 ML BAG IV SCH (21:46)
[2022-02-12 05:02] LABS: ANION GAP 8.5 mEq/L (7-13)
[2022-02-12] MEDS ORDERED: Metoprolol Tartrate 5 MG/5 ML SDV IVPUSH PRN (08:07)
[2022-02-12] MEDS ORDERED: hydrALAZINE 20 MG/ML SDV IVPUSH PRN (08:07)
[2022-02-12] MEDS: Metoprolol Tartrate 50 MG Tab PO SCH ×2 (08:08→20:38)
[2022-02-12] MEDS: Clopidogrel 75 MG Tab PO SCH (08:08)
[2022-02-12] MEDS: Furosemide 20 MG Tab PO SCH (08:09)
[2022-02-12] MEDS: Lisinopril 10 MG Tab PO SCH (08:10)
[2022-02-12] MEDS: atorvaSTATin 20 MG Tab PO SCH (08:10)
[2022-02-12] MEDS: Spironolactone 25 MG Tab PO SCH (08:10)
[2022-02-12] MEDS: Warfarin 5 MG Tab PO SCH (13:48)
[2022-02-12] MEDS ORDERED: Labetalol 20 MG/4 ML Syringe IVPUSH PRN (19:23)
[2022-02-12] MEDS: Heparin Sodium/0.45% NaCl 25,000 UNITS/500 ML BAG IV SCH (19:42)
[2022-02-12] MEDS ORDERED: Magnesium Sulfate/Water 2 GM in Premix Bag 1 BAG IV ONE (21:00)
[2022-02-13 04:56] LABS: ANION GAP 7.5 mEq/L (7-13)
[2022-02-13 05:01] LABS: PTT,PARTIAL THROMBOPLSTIN TIME 65.2 SEC (22.0-34.0)
[2022-02-13] MEDS ORDERED: Fluconazole 100 MG Tab PO ONE (07:12)
[2022-02-13] MEDS: Clopidogrel 75 MG Tab PO SCH ×2 (07:36→08:19)
[2022-02-13] MEDS: Furosemide 20 MG Tab PO SCH ×2 (07:36→08:19)
[2022-02-13] MEDS: Metoprolol Tartrate 50 MG Tab PO SCH ×2 (07:36→20:40)
[2022-02-13] MEDS: Spironolactone 25 MG Tab PO SCH ×2 (07:36→08:19)
[2022-02-13] MEDS: Lisinopril 10 MG Tab PO SCH ×2 (07:36→08:19)
[2022-02-13] MEDS: atorvaSTATin 20 MG Tab PO SCH ×2 (07:38→08:19)
[2022-02-13] MEDS ORDERED: Metoprolol Tartrate 25 MG Tab PO ONE (08:21)
[2022-02-13] MEDS ORDERED: cloNIDine 0.1 MG Tab PO ONE (08:23)
[2022-02-13] MEDS ORDERED: Metoprolol Tartrate 50 MG Tab PO SCH (09:00)
[2022-02-13] MEDS ORDERED: Warfarin 5 MG Tab PO SCH (14:00)
[2022-02-13] MEDS: Heparin Sodium/0.45% NaCl 25,000 UNITS/500 ML BAG IV SCH (18:57)
[2022-02-14 06:51] LABS: ANION GAP 8.7 mEq/L (7-13)
[2022-02-14] MEDS ORDERED: Fluconazole 100 MG Tab PO ONE (09:00)
[2022-02-14] MEDS: Spironolactone 25 MG Tab PO SCH (10:11)
[2022-02-14] MEDS: atorvaSTATin 20 MG Tab PO SCH (10:12)
[2022-02-14] MEDS: Furosemide 20 MG Tab PO SCH (10:13)
[2022-02-14] MEDS: Clopidogrel 75 MG Tab PO SCH (10:13)
[2022-02-14] MEDS: Lisinopril 10 MG Tab PO SCH (10:14)
[2022-02-14] MEDS: Metoprolol Tartrate 50 MG Tab PO SCH ×2 (10:15→21:41)
[2022-02-14] MEDS ORDERED: Warfarin 5 MG Tab PO ONE (14:00)
[2022-02-14] MEDS ORDERED: Apixaban 5 MG Tab PO ONE (21:03)
[2022-02-14] MEDS: cloNIDine 0.1 MG Tab PO SCH (21:41)
[2022-02-15] MEDS ORDERED: Apixaban 5 MG Tab PO SCH (09:00)
[2022-02-15] MEDS: Lisinopril 10 MG Tab PO SCH (09:03)
[2022-02-15] MEDS: Metoprolol Tartrate 50 MG Tab PO SCH (09:04)
[2022-02-15] MEDS: cloNIDine 0.1 MG Tab PO SCH (09:05)
[2022-02-15] MEDS: Furosemide 20 MG Tab PO SCH (09:06)
[2022-02-15] MEDS: atorvaSTATin 20 MG Tab PO SCH (09:06)
[2022-02-15] MEDS: Clopidogrel 75 MG Tab PO SCH (09:06)
[2022-02-15] MEDS: Spironolactone 25 MG Tab PO SCH (09:07)
== END 2022-02-15 10:10 | disposition home or self-care (01) | DRG 291 ==
LOC: DL.ED 10:39 → DL.MS 14:34
PROVIDERS: ADMIT Internal Medicine; ATTEND Internal Medicine
DX: I13.0 Hypertensive heart and chronic kidney disease with heart failure and stage 1 through stage 4 chronic kidney disease, or unspecified chronic kidney disease (principal); I50.23 Acute on chronic systolic (congestive) heart failure; I48.20 Chronic atrial fibrillation, unspecified; I42.8 Other cardiomyopathies; N18.2 Chronic kidney disease, stage 2 (mild); E83.9 Disorder of mineral metabolism, unspecified; K76.0 Fatty (change of) liver, not elsewhere classified; E83.42 Hypomagnesemia; D72.819 Decreased white blood cell count, unspecified; E88.09 Other disorders of plasma-protein metabolism, not elsewhere classified; R73.9 Hyperglycemia, unspecified; R77.8 Other specified abnormalities of plasma proteins; I25.10 Atherosclerotic heart disease of native coronary artery without angina pectoris; F17.210 Nicotine dependence, cigarettes, uncomplicated; R79.1 Abnormal coagulation profile; Z20.822 Contact with and (suspected) exposure to COVID-19; Z91.199 Patient's noncompliance with other medical treatment and regimen due to unspecified reason; Z79.01 Long term (current) use of anticoagulants; Z79.899 Other long term (current) drug therapy; Z79.02 Long term (current) use of antithrombotics/antiplatelets; I25.2 Old myocardial infarction; Z87.01 Personal history of pneumonia (recurrent)
CPT/HCPCS: 0241U; 36415; 71045; 80048; 80053; 80305-QW; 80307; 83735; 83880; 84439; 84443; 84484; 85025; 85379; 85610; 85730; 93005; 93970; 96365; 96366; 96375; 99285-25; A9270-GY; J1644; J1940; J3475; J3490